=== PATIENT | male | born 1965 | race Caucasian/White ===

== ENCOUNTER → 2021-12-31 | Outpatient (CLI) | payer MEDICARE | LOC: EDBD 13:00 → KOH-I 13:00 | DX: G89.4 Chronic pain syndrome (principal); Z98.1 Arthrodesis status; M51.36 Other intervertebral disc degeneration, lumbar region; M47.816 Spondylosis without myelopathy or radiculopathy, lumbar region | CPT/HCPCS: 72131 ==